=== PATIENT | male | born 1955 | race Two or more races ===

== ENCOUNTER 2025-07-01 20:06 | Emergency (ER) | payer OTHER ==
[~2025-07-01] VITALS: Ht 165.1 cm; Wt 62.6 kg
[2025-07-01] MEDS ORDERED: ACETAMINOPHEN ES 500 MG TABLET ONE (20:35)
[2025-07-01] MEDS: ACETAMINOPHEN ES 500 MG TABLET PO ONE (20:37)
[2025-07-01] MEDS ORDERED: IBUP-2314 PO (22:13)
[2025-07-01] MEDS ORDERED: ACET-3102 PO (22:13)
[2025-07-01 23:12] VITALS: BP 130/65; TEMP 98; O2SAT 99
== END 2025-07-01 23:12 | disposition home or self-care (01) ==
LOC: ER 20:10
DX: R51.9 Headache, unspecified (principal); M54.2 Cervicalgia; V43.52XA Car driver injured in collision with other type car in traffic accident, initial encounter; Y93.89 Activity, other specified; Y92.410 Unspecified street and highway as the place of occurrence of the external cause; Y99.8 Other external cause status
CPT/HCPCS: 70450-TC; 72125-TC